=== PATIENT | female | born 1960 | race Asian ===

== ENCOUNTER 2017-03-19 08:27 | Emergency (ER) | payer BC ==
[~2017-03-19] VITALS: Ht 157.5 cm; Wt 66.0 kg
[~2017-03-19 08:27] MED LIST: ASPI-986 PO; CARD12 PO; METF500T4 PO; MULT-1146 PO; OMEG500C PO; OMEP20CA4 PO; VALS1TAB31 PO; VALS320T2 PO
[2017-03-19 12:39] VITALS: BP 155/93
== END 2017-03-19 13:09 | disposition home or self-care (01) ==
LOC: ER 08:43
DX: M79.671 Pain in right foot (principal); M79.672 Pain in left foot; I10 Essential (primary) hypertension; E78.00 Pure hypercholesterolemia, unspecified; E11.9 Type 2 diabetes mellitus without complications; Z90.710 Acquired absence of both cervix and uterus; Z98.890 Other specified postprocedural states; Z88.8 Allergy status to other drugs, medicaments and biological substances
CPT/HCPCS: 73630; 82962; 99284; Z7610

== ENCOUNTER 2017-10-08 15:00 | Emergency (ER) | payer BC ==
[~2017-10-08] VITALS: Ht 157.5 cm; Wt 70.0 kg
[~2017-10-08 15:00] MED LIST changes: -ASPI-986 PO; -OMEP20CA4 PO
[2017-10-08] MEDS ORDERED: IBUPROFEN 600MG TABLET PO ONE (18:15)
[2017-10-08 18:34] VITALS: BP 148/92
== END 2017-10-08 18:35 | disposition home or self-care (01) ==
LOC: ER 15:12
DX: M79.641 Pain in right hand (principal); M79.642 Pain in left hand; I10 Essential (primary) hypertension; E78.00 Pure hypercholesterolemia, unspecified; E11.9 Type 2 diabetes mellitus without complications; Z98.890 Other specified postprocedural states; Z90.49 Acquired absence of other specified parts of digestive tract; V49.9XXA Car occupant (driver) (passenger) injured in unspecified traffic accident, initial encounter; Y93.89 Activity, other specified; Y92.89 Other specified places as the place of occurrence of the external cause; Y99.8 Other external cause status
CPT/HCPCS: 73110; 73130; 99284

== ENCOUNTER 2017-12-13 00:29 | Emergency (ER) | payer BC, OTHER ==
[~2017-12-13] VITALS: Ht 157.5 cm; Wt 67.0 kg
[~2017-12-13 00:29] MED LIST changes: -METF500T4 PO; +METF500T6 PO
[2017-12-13 03:30] VITALS: BP 128/71
== END 2017-12-13 03:30 | disposition home or self-care (01) ==
LOC: ER 00:29
DX: M79.645 Pain in left finger(s) (principal); E11.9 Type 2 diabetes mellitus without complications; I10 Essential (primary) hypertension; Z88.8 Allergy status to other drugs, medicaments and biological substances
CPT/HCPCS: 73130; 99284

== ENCOUNTER 2018-05-17 08:29 | Emergency (ER) | payer BC, OTHER ==
[~2018-05-17] VITALS: Ht 157.5 cm; Wt 65.0 kg
[~2018-05-17 08:29] MED LIST changes: +METF-414 PO; -METF500T6 PO
[2018-05-17] MEDS ORDERED: KETOROLAC 60MG/2ML VIAL IM ONE (09:00)
[2018-05-17 09:15] LABS: HEMATOCRIT 40.3 % (36.0-48.0); HEMOGLOBIN 13.6 g/dL (12.0-16.0); MEAN CORPUSCULAR HEMOGLOBIN 29.2 pg (28.0-32.0); MEAN CORPUSCULAR VOLUME 86.8 fL (81.0-99.0); PLATELET 273 x1000/uL (130-400); RED BLOOD CELL COUNT 4.65 mill/uL (4.2-5.4); RED CELL DISTRIBUTION WIDTH 13.5 % (11.6-14.6)
[2018-05-17 09:21] LABS: CHLORIDE 106 mEq/L (98-107)
[2018-05-17 11:04] VITALS: BP 101/63
== END 2018-05-17 11:06 | disposition home or self-care (01) ==
LOC: ER 08:40
DX: J20.9 Acute bronchitis, unspecified (principal); I10 Essential (primary) hypertension; E78.00 Pure hypercholesterolemia, unspecified; E11.9 Type 2 diabetes mellitus without complications; Z87.19 Personal history of other diseases of the digestive system; Z98.890 Other specified postprocedural states; Z90.710 Acquired absence of both cervix and uterus; Z88.6 Allergy status to analgesic agent
CPT/HCPCS: 36415; 71045; 80048; 85027; 96372; 99284; J1885

== ENCOUNTER → 2021-07-02 | Outpatient (CLI) | payer SELFPAY ==
[2021-07-02 12:48] LABS: BASOPHILS % 0.8 % (0.0-2.0); EOSINOPHILS % 1.9 % (0.0-5.0); HEMATOCRIT. 38.8 % (36.0-48.0); HEMOGLOBIN. 13.1 g/dL (12.0-16.0); LYMPHOCYTES % 39.8 % (20.0-50.0); MEAN CORPUSCULAR HEMOGLOBIN 29.1 pg (28.0-32.0); MEAN CORPUSCULAR VOLUME 86.3 fL (81.0-99.0); MEAN PLATELET VOLUME 9.6 fl (7.4-10.4); MONOCYTES % 4.8 % (2.0-8.0); NEUTROPHILS % 52.7 % (40.0-76.0); PLATELET 254 x1000/uL (130-400); RED CELL DISTRIBUTION WIDTH 13.3 % (11.6-14.6)
[2021-07-02 12:56] LABS: CHLORIDE 109 mEq/L (98-107)
[2021-07-02 13:03] LABS: LDL CHOLESTEROL 131 mg/dL (5-100)
[2021-07-02 13:05] LABS: HDL CHOLESTEROL 62 mg/dL (40-59)
[2021-07-02 13:07] LABS: T4 FREE 1.13 ng/dL (0.76-1.46)
[2021-07-02 13:16] LABS: FOLIC ACID (FOLATE) SERUM >20 ng/mL ng/mL (>5.38)
[2021-07-02 13:29] LABS: VITAMIN B12 SERUM 742 pg/mL (211-911)
[2021-07-03 07:11] LABS: *CREATININE RANDOM URINE 35.8 mg/dL (Not Estab.); MICROALBUMIN RANDOM URINE 7.2 ug/mL (Not Estab.)
[2021-07-03 13:09] LABS: ANTI-NUCLEAR ANTIBODIES DIRECT Negative (Negative); RF PROFILE 29.2 IU/mL (<14.0)
== END | disposition home or self-care (01) ==
LOC: LAB 12:07
PROVIDERS: ATTEND Internal Medicine Endocrinology, Diabetes & Metabolism
DX: E11.9 Type 2 diabetes mellitus without complications (principal); E55.9 Vitamin D deficiency, unspecified; I10 Essential (primary) hypertension; M17.9 Osteoarthritis of knee, unspecified
CPT/HCPCS: 36415; 80053; 80061; 82043; 82306; 82570; 82607; 82746; 83036; 83921; 84439; 84443; 84550; 85025; 86038; 86200; 86431

== ENCOUNTER → 2021-07-03 | Outpatient (CLI) | payer BC | END | disposition home or self-care (01) | LOC: MAMMO 09:15 | PROVIDERS: ATTEND Internal Medicine Endocrinology, Diabetes & Metabolism | DX: M17.0 Bilateral primary osteoarthritis of knee (principal); M25.762 Osteophyte, left knee; M25.761 Osteophyte, right knee; N63.42 Unspecified lump in left breast, subareolar; M41.86 Other forms of scoliosis, lumbar region; M54.9 Dorsalgia, unspecified | CPT/HCPCS: 72110; 73565; 76641; 77062; 77066 ==

== ENCOUNTER → 2021-07-07 | Outpatient (CLI) | payer BC ==
[~2021-07-07] MED LIST changes: +LIDOCAINE HCL 1% 20ML VIAL (Pyxis) INJ ONE; +SODIUM BICARBONATE 4% (2.4MEQ) 5ML VIAL IV ONE
== END | disposition home or self-care (01) ==
LOC: US 08:46
PROVIDERS: ATTEND Internal Medicine Endocrinology, Diabetes & Metabolism
DX: N63.20 Unspecified lump in the left breast, unspecified quadrant (principal); R92.8 Other abnormal and inconclusive findings on diagnostic imaging of breast; Z79.899 Other long term (current) drug therapy; Z98.890 Other specified postprocedural states; Z79.84 Long term (current) use of oral hypoglycemic drugs; Z20.822 Contact with and (suspected) exposure to COVID-19
CPT/HCPCS: 19083; 87070; 87075; 87205; 87426; 88305; J3490; Z7610

== ENCOUNTER → 2021-07-30 | Outpatient (CLI) | payer BC ==
[~2021-07-30] MED LIST changes: -LIDOCAINE HCL 1% 20ML VIAL (Pyxis) INJ ONE; -SODIUM BICARBONATE 4% (2.4MEQ) 5ML VIAL IV ONE
[2021-07-30 10:46] LABS: BASOPHILS % 0.5 % (0.0-2.0); EOSINOPHILS % 1.5 % (0.0-5.0); HEMATOCRIT. 40.4 % (36.0-48.0); HEMOGLOBIN. 13.5 g/dL (12.0-16.0); LYMPHOCYTES % 37.6 % (20.0-50.0); MEAN CORPUSCULAR HEMOGLOBIN 28.9 pg (28.0-32.0); MEAN CORPUSCULAR VOLUME 86.2 fL (81.0-99.0); MEAN PLATELET VOLUME 9.1 fl (7.4-10.4); MONOCYTES % 4.7 % (2.0-8.0); NEUTROPHILS % 55.7 % (40.0-76.0); PLATELET 268 x1000/uL (130-400); RED BLOOD CELL COUNT 4.69 mill/uL (4.2-5.4); RED CELL DISTRIBUTION WIDTH 13.9 % (11.6-14.6)
[2021-07-30 10:53] LABS: CHLORIDE 106 mEq/L (98-107)
== END | disposition home or self-care (01) ==
LOC: LAB 09:28
PROVIDERS: ATTEND Internal Medicine Endocrinology, Diabetes & Metabolism
DX: E11.9 Type 2 diabetes mellitus without complications (principal); E78.5 Hyperlipidemia, unspecified
CPT/HCPCS: 36415; 80053; 83036; 85025

== ENCOUNTER → 2021-10-01 | Outpatient (CLI) | payer BC ==
[2021-10-01 12:35] LABS: BASOPHILS % 0.6 % (0.0-2.0); EOSINOPHILS % 2.3 % (0.0-5.0); HEMATOCRIT. 40.5 % (36.0-48.0); LYMPHOCYTES % 45.4 % (20.0-50.0); MEAN CORPUSCULAR HEMOGLOBIN 30.2 pg (28.0-32.0); MEAN CORPUSCULAR VOLUME 87.7 fL (81.0-99.0); MONOCYTES % 4.7 % (2.0-8.0); PLATELET 266 x1000/uL (130-400); RED BLOOD CELL COUNT 4.62 mill/uL (4.2-5.4); RED CELL DISTRIBUTION WIDTH 14.2 % (11.6-14.6)
[2021-10-01 12:52] LABS: CHLORIDE 108 mEq/L (98-107)
[2021-10-01 13:08] LABS: HDL CHOLESTEROL 58 mg/dL (40-59); LDL CHOLESTEROL 189 mg/dL (5-100)
[2021-10-01 13:24] LABS: VITAMIN B12 SERUM 855 pg/mL (211-911)
[2021-10-02 09:11] LABS: ANTI-NUCLEAR ANTIBODIES DIRECT Negative (Negative); RF PROFILE 26.9 IU/mL (<14.0)
[2021-10-04 09:06] LABS: CCP IgG/IgA PROFILE 8 units (0-19)
[2021-10-05 09:12] LABS: ALBUMIN 4.1 g/dL (2.9-4.4); ALPHA-1-GLOBULIN 0.2 g/dL (0.0-0.4); BETA GLOBULIN 1.5 g/dL (0.7-1.3); GAMMA GLOBULINS 1.6 g/dL (0.4-1.8); GLOBULIN TOTAL 4.3 g/dL (2.2-3.9); M-SPIKE 0.6 g/dL (Not Observed); TOTAL PROTEIN SERUM 8.4 g/dL (6.0-8.5)
== END | disposition home or self-care (01) ==
LOC: LAB 11:59
PROVIDERS: ATTEND Internal Medicine Endocrinology, Diabetes & Metabolism
DX: E11.9 Type 2 diabetes mellitus without complications (principal); E78.00 Pure hypercholesterolemia, unspecified; R77.1 Abnormality of globulin; R42 Dizziness and giddiness
CPT/HCPCS: 36415; 80053; 80061; 82607; 83036; 83921; 84155; 84165; 84443; 85025; 85651; 86038; 86200; 86431

== ENCOUNTER → 2021-10-29 | Outpatient (CLI) | payer BC ==
[~2021-10-29] VITALS: Ht 157.5 cm; Wt 63.5 kg
[~2021-10-29] MED LIST changes: +GADOTERATE MEGLUMINE 5 MMOL/10 ML VIAL IV ONE; +IOHEXOL-350 100 ML BOTTLE ONE; +NITROGLYCERIN SPRAY/4.9GM CAN TL NR
== END | disposition home or self-care (01) ==
LOC: CT 09:38
PROVIDERS: ATTEND Specialist
DX: I65.29 Occlusion and stenosis of unspecified carotid artery (principal); J34.89 Other specified disorders of nose and nasal sinuses; R07.9 Chest pain, unspecified; R51.9 Headache, unspecified; R42 Dizziness and giddiness
CPT/HCPCS: 70544; 70553; 75571; 93306; A9577; Q9967; Z7610

== ENCOUNTER → 2021-11-06 | Outpatient (CLI) | payer BC ==
[~2021-11-06] MED LIST changes: -GADOTERATE MEGLUMINE 5 MMOL/10 ML VIAL IV ONE; -IOHEXOL-350 100 ML BOTTLE ONE; -NITROGLYCERIN SPRAY/4.9GM CAN TL NR
[2021-11-06 10:28] LABS: EOSINOPHILS % 2.5 % (0.0-5.0); HEMATOCRIT. 41.1 % (36.0-48.0); HEMOGLOBIN. 13.9 g/dL (12.0-16.0); LYMPHOCYTES % 43.9 % (20.0-50.0); MEAN CORPUSCULAR HEMOGLOBIN 29.4 pg (28.0-32.0); MEAN CORPUSCULAR VOLUME 87.1 fL (81.0-99.0); MEAN PLATELET VOLUME 9.1 fl (7.4-10.4); MONOCYTES % 4.8 % (2.0-8.0); NEUTROPHILS % 47.8 % (40.0-76.0); PLATELET 280 x1000/uL (130-400); RED BLOOD CELL COUNT 4.72 mill/uL (4.2-5.4); RED CELL DISTRIBUTION WIDTH 13.3 % (11.6-14.6)
[2021-11-06 10:40] LABS: CHLORIDE 108 mEq/L (98-107)
[2021-11-06 10:49] LABS: HDL CHOLESTEROL 61 mg/dL (40-59); LDL CHOLESTEROL 83 mg/dL (5-100)
== END | disposition home or self-care (01) ==
LOC: LAB 09:54
PROVIDERS: ATTEND Specialist
DX: I11.9 Hypertensive heart disease without heart failure (principal); E78.2 Mixed hyperlipidemia
CPT/HCPCS: 36415; 80053; 80061; 85025

== ENCOUNTER → 2021-11-11 | Outpatient (CLI) | payer BC ==
[~2021-11-11] MED LIST changes: +IOHEXOL-350 100 ML BOTTLE ONE
== END | disposition home or self-care (01) ==
LOC: CT 12:37
PROVIDERS: ATTEND Specialist
DX: R94.02 Abnormal brain scan (principal); R51.9 Headache, unspecified; R42 Dizziness and giddiness
CPT/HCPCS: 70496; Q9967; Z7610

== ENCOUNTER → 2021-11-30 | Outpatient (CLI) | payer BC ==
[~2021-11-30] MED LIST changes: -IOHEXOL-350 100 ML BOTTLE ONE
== END | disposition home or self-care (01) ==
LOC: LAB 11:08
PROVIDERS: ATTEND Specialist
DX: R06.02 Shortness of breath (principal); Z20.822 Contact with and (suspected) exposure to COVID-19
CPT/HCPCS: 87426; C9803

== ENCOUNTER → 2021-12-01 | Day surgery (SDC) | payer BC ==
[~2021-12-01] VITALS: Ht 157.5 cm; Wt 63.5 kg
[~2021-12-01] MED LIST changes: +ASPIRIN/SOD BICARB/CITRIC ACID 324MG TAB EFF ONE; +ATROPINE SULFATE 1MG/10ML SYR IV PRN; +FENTANYL CITRATE/PF 50MCG/ML 2ML VIAL ONE; +HEPARIN 1000 UNITS/ML 10ML ONE; +IODIXANOL 320MG/ML 100 ML BOTTLE IV ONE; +LIDOCAINE HCL/PF 1% 10 MG/ML 5ML VIAL ONE; +MIDAZOLAM HCL 2 MG/2 ML VIAL ONE; +MORPHINE SULFATE 2 MG/ML CPJ (NOT FOR IM USE) IV PRN; +NICARDIPINE 100MCG/ML 10ML VIAL (CATH LAB) IV ONE; +NITROGLYCERIN 50MCG/ML 10ML VIAL (CATH LAB) IV ONE; +ONDANSETRON HCL 4MG/2ML INJ IV PRN
[2021-12-01 07:48] LABS: BASOPHILS % 0.8 % (0.0-2.0); EOSINOPHILS % 1.9 % (0.0-5.0); HEMATOCRIT. 38.4 % (36.0-48.0); HEMOGLOBIN. 12.7 g/dL (12.0-16.0); LYMPHOCYTES % 50.6 % (20.0-50.0); MEAN CORPUSCULAR VOLUME 87.8 fL (81.0-99.0); MEAN PLATELET VOLUME 9.1 fl (7.4-10.4); MONOCYTES % 6.4 % (2.0-8.0); NEUTROPHILS % 40.3 % (40.0-76.0); PLATELET 259 x1000/uL (130-400); RED BLOOD CELL COUNT 4.37 mill/uL (4.2-5.4); RED CELL DISTRIBUTION WIDTH 13.2 % (11.6-14.6)
[2021-12-01 07:56] LABS: CHLORIDE 111 mEq/L (98-107)
== END | disposition home or self-care (01) ==
LOC: CCL 06:37
PROVIDERS: ATTEND Specialist
DX: I25.10 Atherosclerotic heart disease of native coronary artery without angina pectoris (principal); I10 Essential (primary) hypertension; E78.5 Hyperlipidemia, unspecified; E11.9 Type 2 diabetes mellitus without complications; Z79.84 Long term (current) use of oral hypoglycemic drugs; Z79.899 Other long term (current) drug therapy; Z98.890 Other specified postprocedural states
CPT/HCPCS: 36415; 80053; 85025; 93458; C1769; C1887; C1893; J1644; J2250; J3010; J3490; Q9967; 99152; G0500

== ENCOUNTER → 2022-03-10 | Outpatient (CLI) | payer BC ==
[~2022-03-10] MED LIST changes: -ASPIRIN/SOD BICARB/CITRIC ACID 324MG TAB EFF ONE; -ATROPINE SULFATE 1MG/10ML SYR IV PRN; -FENTANYL CITRATE/PF 50MCG/ML 2ML VIAL ONE; -HEPARIN 1000 UNITS/ML 10ML ONE; -IODIXANOL 320MG/ML 100 ML BOTTLE IV ONE; -LIDOCAINE HCL/PF 1% 10 MG/ML 5ML VIAL ONE; -MIDAZOLAM HCL 2 MG/2 ML VIAL ONE; -MORPHINE SULFATE 2 MG/ML CPJ (NOT FOR IM USE) IV PRN; -NICARDIPINE 100MCG/ML 10ML VIAL (CATH LAB) IV ONE; -NITROGLYCERIN 50MCG/ML 10ML VIAL (CATH LAB) IV ONE; -ONDANSETRON HCL 4MG/2ML INJ IV PRN
[2022-03-10 08:26] LABS: BASOPHILS % 0.8 % (0.0-2.0); EOSINOPHILS % 1.3 % (0.0-5.0); HEMATOCRIT. 38.3 % (36.0-48.0); HEMOGLOBIN. 13.2 g/dL (12.0-16.0); LYMPHOCYTES % 41.3 % (20.0-50.0); MEAN CORPUSCULAR HEMOGLOBIN 30.2 pg (28.0-32.0); MEAN CORPUSCULAR VOLUME 87.8 fL (81.0-99.0); MEAN PLATELET VOLUME 8.6 fl (7.4-10.4); NEUTROPHILS % 51.6 % (40.0-76.0); PLATELET 275 x1000/uL (130-400); RED BLOOD CELL COUNT 4.36 mill/uL (4.2-5.4); RED CELL DISTRIBUTION WIDTH 13.9 % (11.6-14.6)
[2022-03-10 08:55] LABS: CHLORIDE 108 mEq/L (98-107)
[2022-03-10 09:05] LABS: HDL CHOLESTEROL 61 mg/dL (40-59); LDL CHOLESTEROL 129 mg/dL (5-100)
[2022-03-12 13:10] LABS: *CREATININE RANDOM URINE 139.6 mg/dL (Not Estab.); MICROALBUMIN RANDOM URINE 38.5 ug/mL (Not Estab.)
== END | disposition home or self-care (01) ==
LOC: LAB 07:57
PROVIDERS: ATTEND Internal Medicine Endocrinology, Diabetes & Metabolism
DX: I10 Essential (primary) hypertension (principal); E11.9 Type 2 diabetes mellitus without complications; E55.9 Vitamin D deficiency, unspecified
CPT/HCPCS: 36415; 80053; 80061; 82043; 82306; 82570; 83036; 85025

== ENCOUNTER → 2022-07-30 | Outpatient (CLI) | payer BC ==
[2022-07-30 06:56] LABS: BASOPHILS % 0.8 % (0.0-2.0); EOSINOPHILS % 2.2 % (0.0-5.0); HEMOGLOBIN. 12.8 g/dL (12.0-16.0); MEAN CORPUSCULAR HEMOGLOBIN 29.2 pg (28.0-32.0); MONOCYTES % 6.8 % (2.0-8.0); NEUTROPHILS % 41.2 % (40.0-76.0); PLATELET 284 x1000/uL (130-400); RED BLOOD CELL COUNT 4.39 mill/uL (4.2-5.4); RED CELL DISTRIBUTION WIDTH 13.6 % (11.6-14.6)
[2022-07-30 07:12] LABS: CHLORIDE 106 mEq/L (98-107)
[2022-07-30 07:29] LABS: HDL CHOLESTEROL 41 mg/dL (40-59); LDL CHOLESTEROL 55 mg/dL (5-100); T4 FREE 1.22 ng/dL (0.76-1.46)
[2022-08-02 09:06] LABS: *CREATININE RANDOM URINE 80.4 mg/dL (Not Estab.); MICROALBUMIN RANDOM URINE 17.1 ug/mL (Not Estab.)
== END | disposition home or self-care (01) ==
LOC: LAB 06:15
PROVIDERS: ATTEND Internal Medicine Endocrinology, Diabetes & Metabolism
DX: I10 Essential (primary) hypertension (principal); E78.5 Hyperlipidemia, unspecified; E11.9 Type 2 diabetes mellitus without complications; E55.9 Vitamin D deficiency, unspecified
CPT/HCPCS: 36415; 80053; 80061; 82043; 82306; 82570; 83036; 84439; 84443; 85025

== ENCOUNTER → 2022-11-15 | Outpatient (CLI) | payer BC ==
[2022-11-15 11:07] LABS: BASOPHILS % 0.7 % (0.0-2.0); HEMATOCRIT. 40.5 % (36.0-48.0); HEMOGLOBIN. 13.9 g/dL (12.0-16.0); LYMPHOCYTES % 44.7 % (20.0-50.0); MEAN CORPUSCULAR HEMOGLOBIN 30.4 pg (28.0-32.0); MEAN CORPUSCULAR VOLUME 88.5 fL (81.0-99.0); MEAN PLATELET VOLUME 8.5 fl (7.4-10.4); MONOCYTES % 4.7 % (2.0-8.0); NEUTROPHILS % 46.9 % (40.0-76.0); PLATELET 281 x1000/uL (130-400); RED BLOOD CELL COUNT 4.58 mill/uL (4.2-5.4); RED CELL DISTRIBUTION WIDTH 13.5 % (11.6-14.6)
[2022-11-15 12:25] LABS: CHLORIDE 110 mEq/L (98-107)
[2022-11-15 12:51] LABS: CREATINE KINASE 176 IU/L (26-192); HDL CHOLESTEROL 63 mg/dL (40-59); LDL CHOLESTEROL 115 mg/dL (5-100); T4 FREE 0.96 ng/dL (0.76-1.46)
[2022-11-15 14:35] LABS: VITAMIN B12 SERUM 695 pg/mL (211-911)
[2022-11-15 15:00] LABS: FOLIC ACID (FOLATE) SERUM > 20.00 ng/mL (>5.38)
[2022-11-16 09:11] LABS: RF PROFILE 24.3 IU/mL (<14.0); VITAMIN D 25-OH 57.9 ng/mL (30.0-100.0)
[2022-11-16 13:07] LABS: *CREATININE RANDOM URINE 58.8 mg/dL (Not Estab.); MICROALBUMIN RANDOM URINE 5.6 ug/mL (Not Estab.)
[2022-11-16 17:11] LABS: ANTI-NUCLEAR ANTIBODIES DIRECT Negative (Negative)
== END | disposition home or self-care (01) ==
LOC: LAB 10:23
PROVIDERS: ATTEND Internal Medicine Endocrinology, Diabetes & Metabolism
DX: I10 Essential (primary) hypertension (principal); E11.9 Type 2 diabetes mellitus without complications; E55.9 Vitamin D deficiency, unspecified; E78.5 Hyperlipidemia, unspecified
CPT/HCPCS: 36415; 80053; 80061; 82043; 82306; 82550; 82570; 82607; 82746; 83036; 83921; 84439; 84443; 85025; 85651; 86038; 86200; 86431

== ENCOUNTER → 2022-11-18 | Outpatient (CLI) | payer BC | END | disposition home or self-care (01) | LOC: MAMMO 09:19 | PROVIDERS: ATTEND Internal Medicine Endocrinology, Diabetes & Metabolism | DX: N60.02 Solitary cyst of left breast (principal) | CPT/HCPCS: 77066 ==

== ENCOUNTER → 2022-11-19 | Outpatient (CLI) | payer BC | END | disposition home or self-care (01) | LOC: MRI 10:53 | PROVIDERS: ATTEND Internal Medicine | DX: M77.51 Other enthesopathy of right foot and ankle (principal); M77.8 Other enthesopathies, not elsewhere classified; M25.521 Pain in right elbow | CPT/HCPCS: 73221 ==

== ENCOUNTER → 2022-12-17 | Outpatient (CLI) | payer BC | END | disposition home or self-care (01) | LOC: RAD 13:51 | PROVIDERS: ATTEND Internal Medicine | DX: M25.531 Pain in right wrist (principal); M25.532 Pain in left wrist | CPT/HCPCS: 73110 ==

== ENCOUNTER → 2022-12-31 | Outpatient (CLI) | payer BC | END | disposition home or self-care (01) | LOC: MRI 15:47 | PROVIDERS: ATTEND Internal Medicine | DX: M79.631 Pain in right forearm (principal) | CPT/HCPCS: 73220 ==

== ENCOUNTER → 2023-07-29 | Outpatient (CLI) | payer BC ==
[2023-07-29 10:40] LABS: BASOPHILS % 1.3 % (0.0-2.0); EOSINOPHILS % 2.7 % (0.0-5.0); HEMATOCRIT. 41.2 % (36.0-48.0); LYMPHOCYTES % 45.8 % (20.0-50.0); MEAN CORPUSCULAR HGB CONC 34.1 g/dL (31.0-37.0); MEAN PLATELET VOLUME 8.6 fl (7.4-10.4); MONOCYTES % 4.8 % (2.0-8.0); NEUTROPHILS % 45.4 % (40.0-76.0); PLATELET 327 x1000/uL (130-400); RED BLOOD CELL COUNT 4.68 mill/uL (4.2-5.4); RED CELL DISTRIBUTION WIDTH 13.7 % (11.6-14.6); WHITE BLOOD COUNT 7.6 x1000/uL (4.5-11.0)
[2023-07-29 11:02] LABS: ALANINE AMINOTRANSFERASE 19 IU/L (10-49); ALBUMIN 5.1 g/dL (3.2-4.8); ASPARTATE AMINOTRANSFERASE 22 IU/L (<34); BILIRUBIN TOTAL 0.5 mg/dL (0.1-1.0); CALCIUM 9.6 mg/dL (8.7-10.4); CARBON DIOXIDE 25 mEq/L (21-32); CHLORIDE 104 mEq/L (98-107); CHOLESTEROL 219 mg/dL (<200); CREATININE 0.8 mg/dL (0.6-1.0); GLUCOSE 121 mg/dL (70-105); HDL CHOLESTEROL 59 mg/dL (>65); LDL CHOLESTEROL 155 mg/dL (5-100); POTASSIUM 4.1 mEq/L (3.5-5.1); PROTEIN TOTAL 8.2 g/dL (6.0-8.3); SODIUM 138 mEq/L (136-145); T4 FREE 1.34 ng/dL (0.89-1.76); THYROID STIMULATING HORMONE 2.11 uIU/mL (0.55-4.78); TRIGLYCERIDE 155 mg/dL (0-150); UREA NITROGEN BLOOD 12 mg/dL (9-23)
[2023-07-29 12:11] LABS: ERYTHROCYTE SEDIMENTATION RATE 28 mm/hr (0-30)
[2023-07-30 08:08] LABS: *CREATININE RANDOM URINE 75.3 mg/dL (Not Estab.); MICROALBUMIN RANDOM URINE 53.5 ug/mL (Not Estab.)
[2023-07-30 09:10] LABS: VITAMIN D 25-OH 33.9 ng/mL (30.0-100.0)
[2023-07-31 09:07] LABS: CYC CITRULLINATED PEP IgG/IgA 7 units (0-19)
[2023-08-01 09:06] LABS: ANTI-NUCLEAR ANTIBODIES DIRECT Negative (Negative)
== END | disposition home or self-care (01) ==
LOC: LAB 10:00
PROVIDERS: ATTEND Internal Medicine Endocrinology, Diabetes & Metabolism
DX: E11.9 Type 2 diabetes mellitus without complications (principal); E55.9 Vitamin D deficiency, unspecified; I10 Essential (primary) hypertension; E78.5 Hyperlipidemia, unspecified; M19.90 Unspecified osteoarthritis, unspecified site
CPT/HCPCS: 36415; 80053; 80061; 82043; 82306; 82570; 83036; 84439; 84443; 85025; 85651; 86038; 86200; 86430

== ENCOUNTER → 2023-10-21 | Outpatient (CLI) | payer BC ==
[2023-10-21 09:55] LABS: BASOPHILS % 1.1 % (0.0-2.0); EOSINOPHILS % 1.6 % (0.0-5.0); HEMATOCRIT. 40.1 % (36.0-48.0); HEMOGLOBIN. 13.8 g/dL (12.0-16.0); LYMPHOCYTES % 40.3 % (20.0-50.0); MEAN CORPUSCULAR HEMOGLOBIN 30.2 pg (28.0-32.0); MEAN CORPUSCULAR HGB CONC 34.4 g/dL (31.0-37.0); MEAN CORPUSCULAR VOLUME 87.6 fL (81.0-99.0); MEAN PLATELET VOLUME 8.5 fl (7.4-10.4); MONOCYTES % 4.4 % (2.0-8.0); NEUTROPHILS % 52.6 % (40.0-76.0); PLATELET 288 x1000/uL (130-400); RED BLOOD CELL COUNT 4.58 mill/uL (4.2-5.4); RED CELL DISTRIBUTION WIDTH 13.8 % (11.6-14.6); WHITE BLOOD COUNT 8.9 x1000/uL (4.5-11.0)
[2023-10-21 10:49] LABS: CHLORIDE 107 mEq/L (98-107); SODIUM 140 mEq/L (136-145)
[2023-10-21 10:52] LABS: CARBON DIOXIDE 23 mEq/L (21-32)
[2023-10-21 10:57] LABS: CREATININE 0.8 mg/dL (0.6-1.0); GLUCOSE 103 mg/dL (70-105); TRIGLYCERIDE 177 mg/dL (0-150); UREA NITROGEN BLOOD 8 mg/dL (9-23)
[2023-10-21 10:58] LABS: ALANINE AMINOTRANSFERASE 18 IU/L (10-49); LDL CHOLESTEROL 149 mg/dL (5-100); T4 FREE 1.32 ng/dL (0.89-1.76); THYROID STIMULATING HORMONE 2.23 uIU/mL (0.55-4.78)
[2023-10-21 10:59] LABS: ALBUMIN 4.9 g/dL (3.2-4.8); ASPARTATE AMINOTRANSFERASE 21 IU/L (<34); CHOLESTEROL 213 mg/dL (<200); HDL CHOLESTEROL 52 mg/dL (>65)
[2023-10-21 11:00] LABS: BILIRUBIN TOTAL 0.4 mg/dL (0.1-1.0); PROTEIN TOTAL 8.3 g/dL (6.0-8.3)
[2023-10-22 13:07] LABS: *CREATININE RANDOM URINE 185.8 mg/dL (Not Estab.); MICROALBUMIN RANDOM URINE 44.3 ug/mL (Not Estab.)
== END | disposition home or self-care (01) ==
LOC: LAB 09:30
PROVIDERS: ATTEND Internal Medicine Endocrinology, Diabetes & Metabolism
DX: I10 Essential (primary) hypertension (principal); E11.9 Type 2 diabetes mellitus without complications; E78.5 Hyperlipidemia, unspecified
CPT/HCPCS: 36415; 80053; 80061; 82043; 82570; 83036; 84439; 84443; 85025

== ENCOUNTER → 2024-03-22 | Outpatient (CLI) | payer BC ==
[2024-03-22 18:35] LABS: BASOPHILS % 0.9 % (0.0-2.0); EOSINOPHILS % 1.7 % (0.0-5.0); HEMATOCRIT. 42.7 % (36.0-48.0); HEMOGLOBIN. 14.3 g/dL (12.0-16.0); LYMPHOCYTES % 39.7 % (20.0-50.0); MEAN CORPUSCULAR HEMOGLOBIN 30.1 pg (28.0-32.0); MEAN CORPUSCULAR HGB CONC 33.4 g/dL (31.0-37.0); MEAN PLATELET VOLUME 8.7 fl (7.4-10.4); MONOCYTES % 5.1 % (2.0-8.0); NEUTROPHILS % 52.6 % (40.0-76.0); PLATELET 291 x1000/uL (130-400); RED BLOOD CELL COUNT 4.75 mill/uL (4.2-5.4); WHITE BLOOD COUNT 8.7 x1000/uL (4.5-11.0)
[2024-03-22 18:40] LABS: CARBON DIOXIDE 26 mEq/L (21-32); CHLORIDE 108 mEq/L (98-107); POTASSIUM 4.7 mEq/L (3.5-5.1); SODIUM 138 mEq/L (136-145)
[2024-03-22 18:45] LABS: CREATININE 0.8 mg/dL (0.6-1.0); URIC ACID 5.7 mg/dL (3.1-7.8)
[2024-03-22 18:46] LABS: GLUCOSE 115 mg/dL (70-105); TRIGLYCERIDE 129 mg/dL (0-150); UREA NITROGEN BLOOD 14 mg/dL (9-23)
[2024-03-22 18:47] LABS: ALANINE AMINOTRANSFERASE 21 IU/L (10-49); ALBUMIN 4.9 g/dL (3.2-4.8); ASPARTATE AMINOTRANSFERASE 18 IU/L (<34); C REACTIVE PROTEIN QUANT 2.1 mg/L (0.0-3.0); CREATINE KINASE 169 IU/L (34-145); LDL CHOLESTEROL 189 mg/dL (5-100)
[2024-03-22 18:48] LABS: BILIRUBIN TOTAL 0.4 mg/dL (0.1-1.0); CHOLESTEROL 257 mg/dL (<200); HDL CHOLESTEROL 66 mg/dL (>65); PROTEIN TOTAL 8.6 g/dL (6.0-8.3)
[2024-03-22 18:50] LABS: T4 FREE 1.28 ng/dL (0.89-1.76); THYROID STIMULATING HORMONE 1.58 uIU/mL (0.55-4.78)
[2024-03-22 19:25] LABS: ERYTHROCYTE SEDIMENTATION RATE 20 mm/hr (0-30)
[2024-03-24 13:06] LABS: MICROALBUMIN RANDOM URINE 6.1 ug/mL (Not Estab.)
[2024-03-24 14:08] LABS: *CREATININE RANDOM URINE 46.6 mg/dL (Not Estab.)
== END | disposition home or self-care (01) ==
LOC: MRI 16:20
PROVIDERS: ATTEND Internal Medicine Endocrinology, Diabetes & Metabolism
DX: M17.11 Unilateral primary osteoarthritis, right knee (principal); M23.91 Unspecified internal derangement of right knee; M22.42 Chondromalacia patellae, left knee; M25.762 Osteophyte, left knee; M22.41 Chondromalacia patellae, right knee; M25.461 Effusion, right knee; I10 Essential (primary) hypertension; E11.9 Type 2 diabetes mellitus without complications; M10.9 Gout, unspecified; E78.00 Pure hypercholesterolemia, unspecified; E55.9 Vitamin D deficiency, unspecified
CPT/HCPCS: 36415; 73721; 80053; 80061; 82043; 82306; 82550; 82570; 83036; 84439; 84443; 84550; 85025; 85651; 86140

== ENCOUNTER → 2024-03-29 | Outpatient (CLI) | payer BC | END | disposition home or self-care (01) | LOC: MAMMO 07:35 | PROVIDERS: ATTEND Internal Medicine Endocrinology, Diabetes & Metabolism | DX: S83.511A Sprain of anterior cruciate ligament of right knee, initial encounter (principal); S83.512A Sprain of anterior cruciate ligament of left knee, initial encounter; N85.9 Noninflammatory disorder of uterus, unspecified; N95.1 Menopausal and female climacteric states; N63.0 Unspecified lump in unspecified breast; X58.XXXA Exposure to other specified factors, initial encounter; Y93.89 Activity, other specified; Y92.89 Other specified places as the place of occurrence of the external cause; Y99.8 Other external cause status | CPT/HCPCS: 76642; 77062; 77066; 77080; G0279 ==

== ENCOUNTER → 2024-06-29 | Outpatient (CLI) | payer BC ==
[2024-06-29 11:53] LABS: BASOPHILS % 0.8 % (0.0-2.0); EOSINOPHILS % 2.6 % (0.0-5.0); HEMATOCRIT. 41.6 % (36.0-48.0); HEMOGLOBIN. 13.8 g/dL (12.0-16.0); LYMPHOCYTES % 44.8 % (20.0-50.0); MEAN CORPUSCULAR HEMOGLOBIN 29.7 pg (28.0-32.0); MEAN CORPUSCULAR HGB CONC 33.1 g/dL (31.0-37.0); MEAN CORPUSCULAR VOLUME 89.9 fL (81.0-99.0); MONOCYTES % 5.6 % (2.0-8.0); NEUTROPHILS % 46.2 % (40.0-76.0); PLATELET 277 x1000/uL (130-400); RED BLOOD CELL COUNT 4.63 mill/uL (4.2-5.4); RED CELL DISTRIBUTION WIDTH 13.7 % (11.6-14.6); WHITE BLOOD COUNT 8.1 x1000/uL (4.5-11.0)
[2024-06-29 12:04] LABS: CHLORIDE 110 mEq/L (98-107); POTASSIUM 4.5 mEq/L (3.5-5.1); SODIUM 140 mEq/L (136-145)
[2024-06-29 12:05] LABS: CALCIUM 9.6 mg/dL (8.7-10.4); CARBON DIOXIDE 24 mEq/L (21-32)
[2024-06-29 12:10] LABS: CREATININE 0.7 mg/dL (0.6-1.0); GLUCOSE 107 mg/dL (70-105); UREA NITROGEN BLOOD 8 mg/dL (9-23)
[2024-06-29 12:12] LABS: ALANINE AMINOTRANSFERASE 19 IU/L (10-49); ALBUMIN 4.8 g/dL (3.2-4.8); ASPARTATE AMINOTRANSFERASE 19 IU/L (<34); BILIRUBIN TOTAL 0.4 mg/dL (0.1-1.0); PROTEIN TOTAL 8.2 g/dL (6.0-8.3)
[2024-06-29 12:14] LABS: T4 FREE 1.25 ng/dL (0.89-1.76); THYROID STIMULATING HORMONE 2.35 uIU/mL (0.55-4.78)
[2024-06-30 09:06] LABS: VITAMIN D 25-OH 27.3 ng/mL (30.0-100.0)
[2024-06-30 10:07] LABS: *CREATININE RANDOM URINE 85.5 mg/dL (Not Estab.); MICROALBUMIN RANDOM URINE 39.2 ug/mL (Not Estab.)
== END | disposition home or self-care (01) ==
LOC: LAB 11:11
PROVIDERS: ATTEND Internal Medicine Endocrinology, Diabetes & Metabolism
DX: E11.9 Type 2 diabetes mellitus without complications (principal); I10 Essential (primary) hypertension; E78.5 Hyperlipidemia, unspecified; E55.9 Vitamin D deficiency, unspecified
CPT/HCPCS: 36415; 80053; 82043; 82306; 82570; 83036; 83695; 84439; 84443; 85025

== ENCOUNTER 2025-05-29 15:41 | Inpatient (IN) | payer BC ==
[~2025-05-29] VITALS: Ht 157.5 cm; Wt 71.7 kg
[2025-05-29 16:06] VITALS: O2SAT 98
[2025-05-29 17:05] LABS: HEMATOCRIT. 40.0 % (36.0-48.0); HEMOGLOBIN. 13.4 g/dL (12.0-16.0); MEAN PLATELET VOLUME 9.7 fl (7.4-10.4); PLATELET 287 x1000/uL (130-400); RED BLOOD CELL COUNT 4.57 mill/uL (4.2-5.4); RED CELL DISTRIBUTION WIDTH 14.2 % (11.6-14.6)
[2025-05-29 17:11] LABS: INR 0.9
[2025-05-29 17:17] LABS: TROPONIN I HIGH SENSITIVITY 8 ng/L (3.0-34)
[2025-05-29 17:18] LABS: CREATININE 0.8 mg/dL (0.6-1.0); UREA NITROGEN BLOOD 12 mg/dL (9-23)
[2025-05-29 17:19] LABS: PROTEIN TOTAL 7.9 g/dL (6.0-8.3)
[2025-05-29 17:20] LABS: ASPARTATE AMINOTRANSFERASE 23 IU/L (<34); BILIRUBIN DIRECT < 0.1 mg/dL (<=3.0)
[2025-05-29 17:21] LABS: BILIRUBIN TOTAL 0.2 mg/dL (0.1-1.0)
[2025-05-29 17:36] LABS: ATYPICAL LYMPHOCYTES 2; EOSINOPHILS % MANUAL 1.0 % (0.0-5.0); LYMPHOCYTES % MANUAL 39.0 % (20.0-60.0); MONOCYTES % MANUAL 7.0 % (2.0-8.0); NEUTROPHILS % MANUAL 51.0 % (45.0-75.0); PLATELET ESTIMATE NORMAL
[2025-05-29] MEDS: MAGNESIUM 1 G PREMIX 100 ML IV ONE (17:55)
[2025-05-29] MEDS ORDERED: ONDANSETRON HCL 4MG/2ML INJ IV PRN (18:30)
[2025-05-29] MEDS ORDERED: IPRATROPIUM/ALBUTEROL 0.5-3(2.5)MG/3ML NEB HHN PRN (18:30)
[2025-05-29] MEDS ORDERED: MAGNESIUM/ALUMINUM HYDROXIDE/SIMETHICONE 30ML UDC PO PRN (18:30)
[2025-05-29] MEDS ORDERED: ACETAMINOPHEN 325MG TABLET PO PRN ×2 (18:30)
[2025-05-29] MEDS ORDERED: DOCUSATE SODIUM 100MG CAPSULE PO PRN (18:30)
[2025-05-29] MEDS ORDERED: NA PHOS,M-B/NA PHOS,DI-BA ENEMA 118ML PR PRN (18:30)
[2025-05-29] MEDS ORDERED: GUAIFENESIN 200MG/10ML SUGAR FREE UDC PO PRN (18:30)
[2025-05-29] MEDS ORDERED: DEXTROSE 50% WATER 50ML SYRINGE IV PRN (18:30)
[2025-05-29] MEDS ORDERED: HYDRALAZINE 20MG/ML VIAL IV PRN (18:30)
[2025-05-29 18:44] LABS: INFLUENZA TYPE A Presumptive Negative (Pres. Neg.); INFLUENZA TYPE B Presumptive Negative (Pres. Neg.)
[2025-05-29 18:45] LABS: RESPIRATORY SYNCYTIAL VIRUS Not Detected (Not Detectd)
[2025-05-29] MEDS: DICLOFENAC SODIUM 1% GEL 50GM TOP SCH (18:45)
[2025-05-29] MEDS ORDERED: PNEUMOCOCCAL 20-VAL CONJ-DIP CRM 0.5ML IM ONE (20:00)
[2025-05-29 20:09] VITALS: BP 146/76; PULSE 86; RESP 16; TEMP 36.418
[2025-05-29] MEDS: BLOOD SUGAR DIAGNOSTIC STRIP TEST SCH (20:41)
[2025-05-29] MEDS: INSULIN LISPRO 100 UNITS/ML SUBCUT SCH (20:59)
[2025-05-29] MEDS: ATORVASTATIN CALCIUM 40MG TABLET PO SCH (21:00)
[2025-05-29] MEDS: DILTIAZEM HCL 120MG CAPSULE ER 24HR PO SCH (21:01)
[2025-05-29] MEDS: FUROSEMIDE 40MG/4ML VIAL IV SCH (21:01)
[2025-05-29] MEDS: LIDOCAINE 5% PATCH TOP SCH (21:03)
[2025-05-29 21:59] VITALS: BP 146/76; PULSE 86; RESP 18; TEMP 36.4; O2SAT 97
[2025-05-29 23:21] VITALS: BP 135/77; PULSE 90; RESP 18; TEMP 36.2; O2SAT 99
[2025-05-30 00:04] LABS: CLARITY URINE CLEAR (CLEAR); COLOR URINE YELLOW (YELLOW); GLUCOSE URINE NEGATIVE (NEGATIVE); KETONES URINE NEGATIVE (NEGATIVE); LEUKOCYTE ESTERASE URINE NEGATIVE (NEGATIVE); NITRITE URINE NEGATIVE (NEGATIVE); OCCULT BLOOD URINE NEGATIVE (NEGATIVE); PH URINE 5.0 (4.5-8.0); PROTEIN URINE NEGATIVE (NEGATIVE); SPECIFIC GRAVITY URINE 1.005 (1.005-1.030); UROBILINOGEN URINE 0.2 E.U./dL (0.2-1.0)
[2025-05-30 00:26] LABS: TROPONIN I HIGH SENSITIVITY 6 ng/L (3.0-34)
[2025-05-30 01:04] LABS: HEPATITIS C AB NON REACTIVE (Neg) (Negative)
[2025-05-30 04:00] VITALS: BP 149/74; PULSE 85; RESP 18; TEMP 36.2; O2SAT 95
[2025-05-30 07:59] LABS: BASOPHILS % 1.2 % (0.0-2.0); EOSINOPHILS % 1.8 % (0.0-5.0); HEMATOCRIT. 39.2 % (36.0-48.0); HEMOGLOBIN. 12.8 g/dL (12.0-16.0); LYMPHOCYTES % 36.3 % (20.0-50.0); MEAN PLATELET VOLUME 9.5 fl (7.4-10.4); MONOCYTES % 7.4 % (2.0-8.0); NEUTROPHILS % 53.3 % (40.0-76.0); PLATELET 274 x1000/uL (130-400); RED BLOOD CELL COUNT 4.48 mill/uL (4.2-5.4); RED CELL DISTRIBUTION WIDTH 13.9 % (11.6-14.6)
[2025-05-30 08:00] VITALS: BP 119/78; PULSE 78; RESP 17; TEMP 36.3; O2SAT 96
[2025-05-30 08:05] LABS: TROPONIN I HIGH SENSITIVITY 5 ng/L (3.0-34)
[2025-05-30 08:06] LABS: CREATININE 0.7 mg/dL (0.6-1.0); TRIGLYCERIDE 116 mg/dL (0-150); UREA NITROGEN BLOOD 9 mg/dL (9-23)
[2025-05-30 08:07] LABS: LDL CHOLESTEROL 82 mg/dL (5-100)
[2025-05-30] MEDS: PANTOPRAZOLE SODIUM 40 MG/VIAL IV SCH (08:44)
[2025-05-30] MEDS: LOSARTAN 50 MG TABLET PO SCH (08:45)
[2025-05-30 12:00] VITALS: BP 118/59; PULSE 80; RESP 17; TEMP 36.3; O2SAT 97
[2025-05-30 16:00] VITALS: BP 116/54; PULSE 80; RESP 17; TEMP 36.3; O2SAT 96
[2025-05-30 20:00] VITALS: BP 125/66; PULSE 92; RESP 18; TEMP 36.3; O2SAT 99
[2025-05-30 21:11] LABS: CREATININE 1.1 mg/dL (0.6-1.0); UREA NITROGEN BLOOD 13.0 mg/dL (9-23)
[2025-05-31 04:00] VITALS: BP 121/67; PULSE 88; RESP 18; TEMP 36.3; O2SAT 99
[2025-05-31 07:59] LABS: CREATININE 0.9 mg/dL (0.6-1.0); TRIGLYCERIDE 190 mg/dL (0-150); UREA NITROGEN BLOOD 14 mg/dL (9-23)
[2025-05-31 08:00] VITALS: BP 121/64; PULSE 80; RESP 16; TEMP 36.3; O2SAT 99
[2025-05-31 08:00] LABS: LDL CHOLESTEROL 95 mg/dL (5-100)
[2025-05-31 12:00] VITALS: BP 116/60; PULSE 82; RESP 16; TEMP 36.3; O2SAT 99
[2025-05-31] MEDS: MAGNESIUM 2 G PREMIX 50 ML IV SCH (14:43)
[2025-05-31] MEDS ORDERED: LIDO700A30 TOP (14:50)
[2025-05-31] MEDS ORDERED: DILT120C88 PO (14:50)
[2025-05-31] MEDS ORDERED: LIP40 PO (14:50)
[2025-05-31] MEDS ORDERED: TOPUD PO (14:52)
[2025-05-31] MEDS ORDERED: IBUP-1455 PO (14:52)
[2025-05-31 16:00] VITALS: BP 118/65; PULSE 76; RESP 16; TEMP 36.3; O2SAT 98
[2025-05-31 20:00] VITALS: BP 114/58; PULSE 86; RESP 17; TEMP 36.4; O2SAT 97
[2025-05-31] MEDS: PNEUMOCOCCAL 20-VAL CONJ-DIP CRM 0.5ML IM ONE (21:42)
[2025-06-01] VITALS: BP 124/62; PULSE 86; RESP 18; TEMP 36.5; O2SAT 97
[2025-06-01 04:00] VITALS: BP 113/62; PULSE 75; RESP 17; TEMP 36.4; O2SAT 97
[2025-06-01 08:02] VITALS: BP 130/75; PULSE 87; RESP 18; TEMP 36.4; O2SAT 98
[2025-06-01 12:21] VITALS: BP 140/75; PULSE 83; RESP 18; TEMP 36.4; O2SAT 97
[2025-06-01 12:25] VITALS: BP 140/75; PULSE 83; RESP 18; TEMP 97.6
[2025-06-01] MEDS ORDERED: LIDOCAINE 5% PATCH TOP SCH (21:00)
[2025-06-05 07:08] LABS: ANTI-NUCLEAR ANTIBODIES DIRECT Negative (Negative)
== END 2025-06-01 15:07 | disposition home or self-care (01) | DRG 204 ==
LOC: ER 15:41 → 8WST 17:26 → EDBEDREQ 17:28 → EDBEDREQTM 17:28 → ENRESERV 17:35 → 6WST 22:39
PROVIDERS: ADMIT Internal Medicine; ATTEND Internal Medicine
DX: R06.09 Other forms of dyspnea (principal); I50.30 Unspecified diastolic (congestive) heart failure; I11.0 Hypertensive heart disease with heart failure; E11.9 Type 2 diabetes mellitus without complications; E78.00 Pure hypercholesterolemia, unspecified; I25.10 Atherosclerotic heart disease of native coronary artery without angina pectoris; Z95.5 Presence of coronary angioplasty implant and graft; E83.42 Hypomagnesemia; G89.29 Other chronic pain; Z79.4 Long term (current) use of insulin; Z79.84 Long term (current) use of oral hypoglycemic drugs; Z79.899 Other long term (current) drug therapy; Z83.3 Family history of diabetes mellitus; Z88.8 Allergy status to other drugs, medicaments and biological substances; Z90.710 Acquired absence of both cervix and uterus; Z20.822 Contact with and (suspected) exposure to COVID-19
CPT/HCPCS: 36415; 71045; 72148; 73630; 80048; 80061; 80076; 81003; 82962; 83036; 83735; 83880; 84443; 84484; 85025; 85379; 86038; 86431; 86705; 87340; 87420; 87426; 87804; 90732; 93005; 93306; 93970; 99285; A4606; J1815; J1938; J2470; J3475